=== PATIENT | female | born 2000 | race Two or more races ===

== ENCOUNTER 2021-05-20 20:34 | Emergency (ER) | payer OTHER ==
[2021-05-20] MEDS ORDERED: diphenhydrAMINE HCL 25 MG CAPSULE PO ONE (21:00)
--- NOTE | 2021-05-20 21:07 | PHYS DOC ---
General Adult EDM: Chief Complaint: ALLERGIES HPI: HPI: ".. I accidentally ate a salad with walnuts on it and I am severely allergic to them..... There is about an hour and a half ago when I first started eating the salad... I does want to get checked out I do not feel too sick yet.. ".. 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 Patient accidentally consumed some possibly and a salad. Patient does have a history of multiple allergies. Patient does have a history of reactive airway disease. No recent travel. No specific ill contacts. Is accompanied with her emotional support dog " Nessa". Has had COVID vaccination. Review of Systems: Review of Systems: Constitutional: Denies fever or chills Eyes: Denies change in visual acuity HENT: Denies nasal congestion or sore throat Respiratory: Complaining of wheezing Cardiovascular: Denies chest pain or edema GI: Denies abdominal pain, nausea, vomiting, bloody stools or diarrhea : Denies dysuria Musculoskeletal: Denies back pain or joint pain Integument: Denies rash Neurologic: Denies headache, focal weakness or sensory changes Endocrine: Denies polyuria or polydipsia Lymphatic: Denies swollen glands Psychiatric: Denies depression or anxiety Family History: Family History: Noncontributory to presentation Current Medications: Current Meds: Current Medications Medications (Trade) Dose Ordered Sig/Gualberto Start Time Stop Time Status Last Admin Dose Admin Diphenhydramine HCl (Benadryl) 50 mg 1X ONCE 05/20/21 21:00 05/20/21 21:01 DC Allergies: Allergies: Allergies Coded Allergies Type Severity Reaction Last Updated Verified No Known Drug Allergies 05/20/21 No Physical Exam: PE: Constitutional: Well developed, well nourished, no acute distress, non-toxic appearance. [] HENT: Normocephalic, atraumatic, bilateral external ears normal, oropharynx moist, no oral exudates, nose slightly swollen turbinates with clear rhinorrhea Eyes: PERRLA, EOMI, conjunctiva normal, no discharge. [] Neck: Normal range of motion, no tenderness, supple, no stridor. [] Cardiovascular:Heart rate regular rhythm, no murmur [] Lungs & Thorax: Bilateral breath sounds equal with few scattered wheezes on auscultation [] Abdomen: Bowel sounds hyperactive, soft, no tenderness, no masses, no pulsatile masses. [] Skin: Warm, dry, no erythema, no rash. [] Back: No tenderness, no CVA tenderness. [] Extremities: No tenderness, no cyanosis, no clubbing, ROM intact, no edema. [] No cording noted. Neurologic: Alert and oriented X 3, normal motor function, normal sensory function, no focal deficits noted. [] Psychologic: Affect anxious, judgement normal, mood normal. [] Current Patient Data: Vital Signs: Vital Signs Date Time Temp Pulse Resp B/P (MAP) Pulse Ox O2 Delivery O2 Flow Rate FiO2 05/20/21 20:40 97 EKG: EKG: [] Radiology/Procedures: Radiology/Procedures: [] Heart Score: C/O Chest Pain: N/A Risk Factors: Risk Factors: DM, Current or recent (<one month) smoker, HTN, HLP, family history of CAD, obesity. Risk Scores: Score 0 - 3: 2.5% MACE over next 6 weeks - Discharge Home Score 4 - 6: 20.3% MACE over next 6 weeks - Admit for Clinical Observation Score 7 - 10: 72.7% MACE over next 6 weeks - Early Invasive Strategies Course & Med Decision Making: Course & Med Decision Making Pertinent Labs and Imaging studies reviewed. (See chart for details) Patient have clear fluids. Patient to use MDI or albuterol treatments 4 times a day. Patient take Pepcid 20 twice a day. Patient take prednisone 50 mg daily for 5 days. Patient can take continue Benadryl 25 to 50 mg 4 times a day. Patient return if any concerns. Patient warned may still have allergic reaction until the cellulitis passed in the stool. Impression: 1. Allergic reaction-mild- Possible ingestion of Walnuts. [] Sissy Disclaimer: Sissy Disclaimer: This electronic medical record was generated, in whole or in part, using a voice recognition dictation system. Departure Departure: Referrals: PCP,NO (PCP) Scripts Prednisone (PREDNISONE) 50 Mg Tablet 50 MG PO DAILY for allergic rx for 5 Days, #5 TAB Prov: MORIS JOYNER MD 05/20/21 Famotidine (PEPCID) 20 Mg Tablet 1 TAB PO BID for 10, #20 TAB 3 Refills Prov: MORIS JOYNER MD 05/20/21 Sissy Disclaimer This chart was dictated in whole or in part using Voice Recognition software in a busy, high-work load, and often noisy Emergency Department environment. It may contain unintended and wholly unrecognized errors or omissions. MORIS JOYNER MD May 20, 2021 21:07
[2021-05-20] MEDS ORDERED: FAMO-63 PO (21:22)
[2021-05-20] MEDS ORDERED: PRED50TA PO (21:22)
[2021-05-20] MEDS ORDERED: predniSONE 10 MG TABLET. PO ONE (22:00)
[2021-05-20] MEDS ORDERED: ALBUTEROL SULFATE 8GM INHALER. INH ONE (22:00)
[2021-05-20] MEDS ORDERED: MAGNESIUM HYDROXIDE 2,400 MG/30 ML ORAL.SUSP. PO ONE (22:00)
[2021-05-20] MEDS ORDERED: FAMOTIDINE 20 MG TABLET PO ONE (22:00)
== END 2021-05-20 22:02 | disposition home or self-care (01) ==
LOC: ER 20:34
DX: T78.40XA Allergy, unspecified, initial encounter (principal); X58.XXXA Exposure to other specified factors, initial encounter
CPT/HCPCS: 99284; J7512; Q0163

== ENCOUNTER 2021-12-23 23:15 | Emergency (ER) | payer OTHER ==
[~2021-12-23] VITALS: Ht 157.5 cm; Wt 76.1 kg
[~2021-12-23 23:15] MED LIST: FAMO-63 PO; PRED50TA PO
--- NOTE | 2021-12-24 00:05 | PHYS DOC ---
Past History Additional Past Medical Histor: ptsd Past Surgical History: Cholecystectomy General Adult EDM: Chief Complaint: SKIN RASH/ABSCESS HPI: HPI: 21-year-old female presents with rash. The patient has eczema. She just developed severe eczema and within the last year. She is supposed to go on a new medication but it needs preapproval. She is having a lot of pruritus tonight. She is taking 50 of Benadryl several hours ago, 40 mg of prednisone an hour ago, ice packs, and topical steroid. She still has so much pruritus she cannot sleep. She did not know what else to do so she came to the emergency room. She has no other complaints at this time. No new exposures. Review of Systems: Review of Systems: Constitutional: Denies fever or chills Eyes: Denies change in visual acuity HENT: Denies nasal congestion or sore throat Respiratory: Denies cough or shortness of breath Cardiovascular: Denies chest pain or edema GI: Denies abdominal pain, nausea, vomiting, bloody stools or diarrhea : Denies dysuria Musculoskeletal: Denies back pain or joint pain Integument: Eczema Neurologic: Denies headache, focal weakness or sensory changes Endocrine: Denies polyuria or polydipsia Lymphatic: Denies swollen glands Psychiatric: Denies depression or anxiety Allergies: Allergies: Allergies Coded Allergies Type Severity Reaction Last Updated Verified No Known Drug Allergies 05/20/21 No Physical Exam: PE: Constitutional: Well developed, well nourished, obese, no acute distress, non- toxic appearance. [] HENT: Normocephalic, atraumatic, bilateral external ears normal, oropharynx moist, no oral exudates, nose normal. [] Eyes: PERRLA, EOMI, conjunctiva normal, no discharge. [] Neck: Normal range of motion, no tenderness, supple, no stridor. [] Cardiovascular: Heart rate regular rhythm, no murmur [] Lungs & Thorax: Bilateral breath sounds clear to auscultation [] Abdomen: Bowel sounds normal, soft, no tenderness, no masses, no pulsatile radha s. [] Skin: Diffuse eczema of the bilateral upper and lower extremities. [] Back: No tenderness, no CVA tenderness. [] Extremities: No tenderness, no cyanosis, no clubbing, ROM intact, no edema. [] Neurologic: Alert and oriented X 3, normal motor function, normal sensory function, no focal deficits noted. [] Psychologic: Affect normal, judgement normal, mood normal. [] Current Patient Data: Vital Signs: Vital Signs Date Time Temp Pulse Resp B/P (MAP) Pulse Ox O2 Delivery O2 Flow Rate FiO2 12/23/21 23:42 98.4 122 22 97 Room Air EKG: EKG: [] Radiology/Procedures: Radiology/Procedures: [] Heart Score: C/O Chest Pain: N/A Risk Factors: Risk Factors: DM, Current or recent (<one month) smoker, HTN, HLP, family history of CAD, obesity. Risk Scores: Score 0 - 3: 2.5% MACE over next 6 weeks - Discharge Home Score 4 - 6: 20.3% MACE over next 6 weeks - Admit for Clinical Observation Score 7 - 10: 72.7% MACE over next 6 weeks - Early Invasive Strategies Course & Med Decision Making: Course & Med Decision Making Pertinent Labs and Imaging studies reviewed. (See chart for details) I will give the patient an additional 4 mg of Decadron IM, 50 mg of Benadryl p.o., and 40 mg of Pepcid p.o. It is my hope this will be enough to help the patient get through the night until the steroids more fully kick in. 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 She is stable for discharge at this time. [] Sissy Disclaimer: Sissy Disclaimer: This electronic medical record was generated, in whole or in part, using a voice recognition dictation system. Departure Departure: Impression: Primary Impression: Severe eczema Disposition: HOME / SELF CARE / HOMELESS Condition: STABLE Referrals: NATALIIA VARGAS (PCP) Patient Instructions: Eczema ROMAIN YEPEZ DO December 24, 2021 00:05
[2021-12-24] MEDS ORDERED: DEXAMETHASONE SOD PHOS 4 MG/ML VIAL. IM ONE (00:15)
[2021-12-24] MEDS ORDERED: FAMOTIDINE 20 MG TABLET PO ONE (00:15)
[2021-12-24] MEDS ORDERED: diphenhydrAMINE HCL 25 MG CAPSULE PO ONE (00:15)
== END 2021-12-24 00:26 | disposition home or self-care (01) ==
LOC: ER 23:15
DX: L30.9 Dermatitis, unspecified (principal)
CPT/HCPCS: 96372; 99283; J1100; Q0163